=== PATIENT | male | born 1975 | race Caucasian/White ===

== ENCOUNTER → 2023-02-13 10:27 | Outpatient (CLI) | payer BC, SELFPAY ==
--- NOTE | ~2023-02-13 | XR_ITS ---
Right Shoulder Technique: AP and axillary views were obtained. Clinical History: Pain Findings: No fracture or dislocation is seen. Osseous alignment is anatomic. Mild AC joint degenerati ve change present. Glenohumeral joint is intact. Soft tissues are unremarkable. Impression: Mild AC joint degenerative change. Reviewed, dictated and finalized at location . Impression: Mild AC joint degenerative change.
== END ==
PROVIDERS: PCP Nurse Practitioner Family; Visit Provider Nurse Practitioner Family
DX: M19.011 Primary osteoarthritis, right shoulder (principal)
CPT/HCPCS: 73030

== ENCOUNTER 2023-09-13 00:28 | Day surgery (SDC) | payer BC, SELFPAY ==
[2023-09-03 08:30] VITALS: BMI 24.1
--- NOTE | 2023-09-11 10:22 | SUR.PREOP ---
Patient called regarding upcoming procedure. Message left on patient's voicemail regarding preop instructions, appointment times, and procedure prep.
[2023-09-13 08:43] VITALS: BP 112/81; PULSE 80; RESP 20; TEMP 36.2; O2SAT 99
[2023-09-13] MEDS: LACTATED RINGERS 1,000 ML 150 ML IV CONT (08:52)
--- NOTE | 2023-09-13 09:44 | PM.HPGS ---
History of Present Illness History of Present Illness Consent: Risks, benefits, and alternatives have been discussed and questions answered. Patient agrees to proceed with procedure. Chief complaint: family hx colon ca Narrative: Michael Godfrey is a 48 year old male here for colonoscopy, father had colon cancer at his 30's. He had colonoscopy 21 years ago Review of Systems Constitutional: Constitutional: Denies headache(s) and Denies weakness Eyes: Eyes: Denies blurry vision ENT: Reports Normal hearing present, Denies headache(s) and Denies neck pain Cardiovascular: Cardiovascular: Denies chest pain and Denies dyspnea Respiratory: Respiratory: Denies dyspnea Gastrointestinal: Gastrointestinal: Reports no additional gastrointestinal complaints Genitourinary: Genitourinary: Denies dysuria Musculoskeletal: Musculoskeletal: Denies neck pain Integumentary/Breasts: Skin/Breast: Denies dry skin Neurologic: Reports Normal hearing present, Denies headache(s) and Denies weakness Psychiatric: Psychiatric: Denies anxiety Endocrine: Endocrine: Denies change in body appearance Hematologic/Lymphatic: Hematologic/Lymphatic: Denies easy bleeding Allergic/Immunologic: Allergic/Immunologic: Denies urticaria [facility] Past Medical History Medical History (Updated 08/26/23 @ 12:30 by Julio Castaneda MD) Abnormal fasting glucose (08/23/23) fasting glucose 102 on 08/23/2023. BMI 23.0-23.9, adult Chronic low back pain without sciatica Chronic neck pain Encounter to establish care Exposure to COVID-19 virus Family hx of colon cancer father with colon cancer in his 30s. Patient with normal colonoscopy at age 27. Low back pain Mixed hyperlipidemia (08/23/23) total cholesterol 176, triglycerides 59, HDL 48, LDL 114, ratio 3.7 on 08/23/2023. Nasal congestion Twice daily use of [id number] nasal decongestant for years Paternal family history of dementia father with dementia started age 81. Prostate cancer screening Right shoulder pain Seasonal allergic rhinitis Surgical History Surgical History History of hernia repair History of shoulder surgery labrum repair- left shoulder Family History Family History Grandparent Family history of renal failure, Onset Age: 93 Social History Social History Smoking status: Never smoker Alcohol intake: never Substance use: never Substance use type: does not use Lack of Transportation: No Lack of Food: Never True Current Housing: I Have Housing Concerned About Future Housing: No Difficulty Paying Gas/Electric Bills: No Difficulty Paying for Meds: No Currently Unemployed: No Education: Bachelor's Degree Difficulty w/ Childcare or Family Care: No Living arrangements: with family Occupation/Education: occupation 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 Spiritual care concerns: No Meds Home Medications and Allergies Home Medications Medication Instructions Recorded Confirmed Type fluticasone propionate 50 1 spray intranasal BID #16 grams 02/13/23 09/03/23 Rx mcg/actuation nasal spray,suspension (Flonase Allergy Relief) Allergies Allergy/AdvReac Type Severity Reaction Status Date / Time No Known Drug Allergies Allergy Unknown Unknown Verified 09/13/23 08:41 Vital Signs Vital Signs - 24 hr 09/13/23 08:43 Temperature 97.1 F L Pulse Rate 80 Respiratory Rate 20 Blood Pressure 112/81 Pulse Oximetry 99 Oxygen Delivery Room Air Exam Const: General: comfortable and no acute distress HENMT: Face/Nose/Sinus: Normal nares present Eyes: General: appearance normal, both eyes and all related structures Neck: Neck: no JVD Resp: Auscultation: clear to auscultation bilaterally Cardio: Rate: regular rate Rhythm: regu
--- NOTE | 2023-09-13 09:47 | WPDANESEPPF ---
Anes - Initial Pre Proc Eval Procedure: Operation Date: 09/13/23 10:00 Proposed Procedures p Colonoscopy - Mehdi Mclaughlin MD Date/Time: 09/13/23 09:47 Surgeon: Mehdi Mclaughlin MD Pre Op Diagnosis: family hx colon ca Patient Data Age: 48 Gender: M Height: 1.7 m Weight: 66.9 kg Last Vital Signs Temp 97.1 F L 09/13/23 08:43 Pulse 80 09/13/23 08:43 Resp 20 09/13/23 08:43 BP 112/81 09/13/23 08:43 Pulse Ox 99 09/13/23 08:43 O2 Del Method Room Air 09/13/23 08:43 Allergies Allergy/AdvReac Type Severity Reaction Status Date / Time No Known Drug Allergies Allergy Unknown Unknown Verified 09/13/23 08:41 Home Medications Medication Instructions Recorded Confirmed Type fluticasone propionate 50 1 spray intranasal BID #16 grams 02/13/23 09/03/23 Rx mcg/actuation nasal spray,suspension (Flonase Allergy Relief) Patient hx anesthesia problems: none Family hx anesthesia problems: none Results Review: All pre-operative results and documents have been reviewed as part of the pre-operative evaluation. [facility] Past Medical History Medical History (Updated 08/26/23 @ 12:30 by Julio Castaneda MD) Abnormal fasting glucose (08/23/23) fasting glucose 102 on 08/23/2023. BMI 23.0-23.9, adult Chronic low back pain without sciatica Chronic neck pain Encounter to establish care Exposure to COVID-19 virus Family hx of colon cancer father with colon cancer in his 30s. Patient with normal colonoscopy at age 27. Low back pain Mixed hyperlipidemia (08/23/23) total cholesterol 176, triglycerides 59, HDL 48, LDL 114, ratio 3.7 on 08/23/2023. Nasal congestion Twice daily use of [id number]-[id number] nasal decongestant for years Paternal family history of dementia father with dementia started age 81. Prostate cancer screening Right shoulder pain Seasonal allergic rhinitis Surgical History Surgical History History of hernia repair History of shoulder surgery labrum repair- left shoulder Family History Family History Grandparent Family history of renal failure, Onset Age: 93 Social History Social History Smoking status: Never smoker Alcohol intake: never Substance use: never Substance use type: does not use Lack of Transportation: No Lack of Food: Never True Current Housing: I Have Housing Concerned About Future Housing: No Difficulty Paying Gas/Electric Bills: No Difficulty Paying for Meds: No Currently Unemployed: No Education: Bachelor's Degree Difficulty w/ Childcare or Family Care: No Living arrangements: with family Occupation/Education: occupation 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 Informed Consent: The patient's anesthetic plan and its attendant risks and benefits were discussed with the patient/family/POA. Questions were solicited and answers provided to the satisfaction of the patient/family/POA.
[2023-09-13 10:11] VITALS: BP 101/65; PULSE 67; RESP 14; O2SAT 99
[2023-09-13 10:21] VITALS: BP 100/69; PULSE 61; RESP 15; O2SAT 99
[2023-09-13 10:31] VITALS: BP 109/72; PULSE 63; RESP 15; O2SAT 100
== END 2023-09-13 10:42 | disposition home or self-care (01) ==
PROVIDERS: PCP Family Medicine; Visit Provider Internal Medicine Gastroenterology
PROC: 0DJD8ZZ Inspection of Lower Intestinal Tract, Via Natural or Artificial Opening Endoscopic (ICD-10-PCS; CPT 45378; principal; 2023-09-13 10:00)
DX: Z12.11 Encounter for screening for malignant neoplasm of colon (principal); K64.8 Other hemorrhoids; Z80.0 Family history of malignant neoplasm of digestive organs
CPT/HCPCS: 45378; J2704; J7120

== ENCOUNTER 2024-01-14 08:32 | Outpatient (CLI) | payer OTHER, SELFPAY ==
--- NOTE | ~2024-01-14 | MR_ITS ---
MRI of the cervical spine Clinical History: Cervicalgia Technique: Axial T2-weighted and gradient images, and sagittal T1-weighted, T2-weighted, and STIR calros ges were acquired. Findings: There is straightening of the normal cervical lordosis. No acute fracture seen. No suspicio us bone marrow signal abnormality seen. There is partial fusion across the C6-C7 disc space. No suspi cious bone marrow signal abnormality seen. At C2-C3, there is no disc bulge or herniation. No spinal canal stenosis, cord compression, or neural foraminal narrowing. At C3-C4, there is mild degenerative disc change. There is minimal disc bulge. No spinal canal stenos is or cord compression. Probable mild bilateral neural foraminal narrowing with mild bilateral facet arthropathy. At C4-C5, there is minimal disc bulge. No canal stenosis or cord compression. There is bilateral neur al foraminal narrowing, right worse than left, with mild facet arthropathy. At C5-C6, there is mild to moderate degenerative disc narrowing. There is mild canal stenosis without kisha cord compression. There is bilateral neural foraminal narrowing with mild bilateral facet arth ropathy. At C6-C7, there is no disc bulge or herniation. No spinal canal stenosis, cord compression, or defini te neural foraminal narrowing. No abnormal signal seen in the spinal cord. Paravertebral soft tissues are unremarkable. Impression: [id number] degenerative spondylosis, as above. Reviewed, dictated and finalized at [facility]. Impression: [id number] degenerative spondylosis, as above.
== END 2024-01-14 08:33 ==
LOC: MICIMG 08:33
PROVIDERS: PCP Family Medicine; Visit Provider Nurse Practitioner Family
DX: M47.892 Other spondylosis, cervical region (principal)
CPT/HCPCS: 72141